=== PATIENT | female | born 1965 | race African-American/Black ===

== ENCOUNTER 2017-01-02 15:12 | Inpatient (IN) | payer OTHER ==
[2017-01-02 19:16] VITALS: BMI 31.3
--- NOTE | 2017-01-02 20:01 | HP ---
Admission ROS [facility] - [facility] Chief Complaint: I WANT TO GO TO REHAB Allergies/Adverse Reactions: Allergies Allergy/AdvReac Type Severity Reaction Status Date / Time No Known Allergies Allergy Verified 01/02/17 19:47 History of Present Illness: 51 YEARS OLD FEMALE WITH LONG HISTORY OF PCP DEPENDENCE HAS HIV AND POSITIVE PPD AND ALLERGIC RHINITIS DENIES MENTAL ILLNESS IS ADMITTED TO REHAB Exam Limitations: No Limitations - Ebola screening Have you traveled outside of the country in the last 21 days: No Have you had contact with anyone from an Ebola affected area: No Have you been sick,other than usual withdrawal symptoms: No Do you have a fever: No - Review of Systems Constitutional: No Symptoms Reported EENT: reports: No Symptoms Reported Respiratory: reports: No Symptoms reported Cardiac: reports: No Symptoms Reported GI: reports: No Symptoms Reported : reports: No Symptoms Reported Musculoskeletal: reports: No Symptoms Reported Integumentary: reports: No Symptoms Reported Neuro: reports: No Symptoms reported Endocrine: reports: No Symptoms Reported Hematology: reports: No Symptoms Reported Psychiatric: reports: Judgement Intact, Mood/Affect Appropiate, Orientated x3 Other Systems: Reviewed and Negative Patient History - Patient Medical History Hx Anemia: No Hx Asthma: No Hx Chronic Obstructive Pulmonary Disease (COPD): No Hx Cancer: No Hx Cardiac Disorders: No Hx Congestive Heart Failure: No Hx Hypertension: No Hx Hypercholesterolemia: No Hx Pacemaker: No HX Cerebrovascular Accident: No Hx Seizures: No Hx Dementia: No Hx Diabetes: No Hx Gastrointestinal Disorders: No Hx Liver Disease: No Hx Genitourinary Disorders: No Hx Sexually Transmitted Disorders: No Hx Renal Disease (ESRD): No Hx Thyroid Disease: No Hx Human Immunodeficiency Virus (HIV): No Hx Hepatitis C: No Hx Depression: No Hx Suicide Attempt: No Hx Bipolar Disorder: No Hx Schizophrenia: No - Patient Surgical History Past Surgical History: No - PPD History Previous Implant?: Yes Documented Results: Positive w/o proof Implanted On Prior [facility] Admission?: No PPD to be Administered?: No - Reproductive History Patient is a Female of Child Bearing Age (11 -55 yrs old): Yes Last Menstrual Period: 01/02/17 Patient : No - Smoking Cessation Smoking history: Never smoked Have you smoked in the past 12 months: No Cigars Per Day: 0 Hx Chewing Tobacco Use: No Initiated information on smoking cessation: No - Substance & Tx. History Hx Alcohol Use: No Hx Substance Use: Yes Substance Use Type: Cocaine Hx Substance Use Treatment: Yes - Substances Abused PCP Route: Smoking Frequency: Daily Amount used: 1 JOINT Age of first use: 14 Date of Last Use: 01/01/17 Family Disease History - Family Disease History Family Disease History: Heart Disease: Grandparent, Brother ( 51 YEARS OLD), Other: Father () Admission Physical Exam [facility] - Vital Signs Vital Signs: Vital Signs - 24 hr 01/02/17 19:12 Temperature 98.3 F Pulse Rate 88 Respiratory 20 Rate Blood Pressure 156/116 - Physical General Appearance: Yes: No Apparent Distress, Appropriately Dressed, Obese HEENTM: Yes: Hearing grossly Normal, Normal ENT Inspection, Normocephalic, Normal Voice Respiratory: Yes: Chest Non-Tender, Lungs Clear, Normal Breath Sounds, No Respiratory Distress, No Accessory Muscle Use Neck: Yes: Supple, Trachea in good position Breast: Yes: Breasts Symetrical Cardiology: Yes: Regular Rhythm, S1, S2 Abdominal: Yes: Non Tender, Soft Genitourinary: Yes: Within Normal Limits Back: Yes: Normal Inspection Musculoskeletal: Yes: full range of Motion, Gait Steady Extremities: Yes: Normal Inspection, Normal Range of Motion, Non-Tender Neurological: Yes: Fully Oriented, Motor Strength 5/5, Normal Mood/Affect, Normal Response Integumentary: Yes: Warm Lymphatic: Yes: Within Normal Limits - Diagnostic (1) PCP dependence Current Visit: Yes Status: Acute (2) HIV (human immunodeficiency virus infection) Current Visit: Yes Status: Acute Comment: PREZESTA NORVIR TRUVADA (3) Positive PPD, treated Current Visit: Yes Status: Resolved Comment: CHEST X RAY PENDING (4) Rhinitis, allergic Current Visit: Yes Status: Acute Qualifiers: Allergic rhinitis trigger: unspecified Allergic rhinitis seasonality: non-seasonal Qualified Code(s): J30.89 - Other allergic rhinitis Cleared for Admission [facility] - Detox or Rehab [facility] Level of Care: Observation Bed Detox Regimen/Protocol: Not Applicable Claeared for Rehab Admission: Yes [facility] Breath Alcohol Content Breath Alcohol Content: 0 Urine Drug Screen - Results Drug Screen Negative: No Urine Drug Screen Results: PCP-Phencyclidine
[2017-01-02] MEDS ORDERED: MAGNESIUM CITRATE 300 ML BOTTLE PO PRN (20:03)
[2017-01-02] MEDS ORDERED: hydrOXYzine PAMOATE 50 MG CAPSULE (FP) PO PRN (20:03)
[2017-01-02] MEDS ORDERED: ACETAMINOPHEN 325 MG TABLET (FP) PO PRN (20:03)
[2017-01-02] MEDS ORDERED: MAGNESIUM HYDROX 2400MG/30ML ORAL SUSPENSION 30 ML CUP PO PRN (20:03)
[2017-01-02] MEDS ORDERED: LOPERAMIDE HCL 2 MG CAPSULE PO PRN (20:03)
[2017-01-02] MEDS ORDERED: IBUPROFEN 400 MG TABLET (FP) PO PRN (20:03)
[2017-01-02] MEDS ORDERED: guaiFENesin/D-METHORPHAN HB 10 ML UNIT-DOSE CUPS PO PRN (20:03)
[2017-01-02] MEDS ORDERED: P-EPHED 60MG/TRIPROLIDI 2.5MG TABLET PO PRN (20:03)
[2017-01-02] MEDS ORDERED: MENTHOL/PHENOL 1 EACH UD MM PRN (20:03)
[2017-01-02] MEDS: THIAMINE HCL 100 MG TABLET (FP) PO SCH (22:24)
[2017-01-03] MEDS ORDERED: hydrOXYzine PAMOATE 50 MG CAPSULE (FP) PO PRN (00:35)
[2017-01-03] MEDS: MAG HYDROX/AL HYDROX/SIMETH 30 ML UNIT-DOSE CUP PO PRN (08:42)
[2017-01-03] MEDS ORDERED: PT OWN MED DRAWER 7, Y5N ONE (09:40)
[2017-01-03 10:00] LABS: MCH 30.7 pg (25.7-33.7); MCHC 34.1 g/dl (32.0-36.0); MEAN CELL VOLUME 90.2 fl (80-96); MEAN PLT VOLUME 10.3 fl (7.5-11.1); PLATELET COUNT 204 K/MM3 (134-434); RDW 15.7 % (11.6-15.6); WHITE BLOOD COUNT 7.4 K/mm3 (4.0-10.0)
[2017-01-03] MEDS: LORATADINE 10 MG TABLET PO SCH (10:15)
[2017-01-03] MEDS: PRENATAL VITAMINS W/ FOLIC ACID TABLET (FP) PO SCH (10:15)
[2017-01-03] MEDS: DARUNAVIR ETHANOLATE 800 MG PO SCH (10:16)
[2017-01-03] MEDS: PATIENT'S OWN MEDICATION (NON-FORMULARY) (Ritonavir [Norvir -] 100 MG) PO SCH (10:16)
[2017-01-03] MEDS: PATIENT'S OWN MEDICATION (NON-FORMULARY) (Emtricitabine/Tenofovir (Tdf) [Truvada 200 Mg-30 PO SCH (10:16)
[2017-01-03] MEDS: FLUCONAZOLE 50 MG TABLET PO SCH (10:17)
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
[2017-01-03 10:48] LABS: ALBUMIN 3.3 g/dl (3.4-5.0); ALK PHOS 64 U/L (45-117); ANION GAP 8 (8-16); BILIRUBIN,TOTAL 0.2 mg/dL (0.2-1.0); CALCIUM 8.5 mg/dL (8.5-10.1); CO2 29 mmol/L (21-32); CREATININE 0.9 mg/dL (0.55-1.02); GLUCOSE,RANDOM 85 mg/dL (74-106); SGOT/AST 14 U/L (15-37); SGPT/ALT 17 U/L (12-78); TOT PROT 7.2 g/dl (6.4-8.2)
--- NOTE | 2017-01-03 11:25 | EKG ---
Test Reason : Blood Pressure : / mmHG Vent. Rate : 074 BPM Atrial Rate : 074 BPM P-R Int : 194 ms QRS Dur : 084 ms QT Int : 406 ms P-R-T Axes : 045 048 043 degrees QTc Int : 450 ms NORMAL SINUS RHYTHM NORMAL ECG NO PREVIOUS ECGS AVAILABLE Confirmed by JOSE ALFREDO CORONA, SERGEY ([id number]) on 01/03/2017 11:25:18 AM Referred By: Mel Mancia Confirmed By:SERGEY VELIZ MD
--- NOTE | 2017-01-03 14:39 | PN ---
[facility] Progress Note Note: C/O external hemorrhoids P : HC 2.5% bid
[2017-01-03 15:23] LABS: URINE APPEARANCE CLEAR; URINE BILIRUBIN NEGATIVE (NEGATIVE); URINE BLOOD NEGATIVE (NEGATIVE); URINE COLOR YELLOW; URINE GLUCOSE (UA) NEGATIVE (NEGATIVE); URINE KETONE NEGATIVE (NEGATIVE); URINE LEUK ESTERASE NEGATIVE (NEGATIVE); URINE NITRITE NEGATIVE (NEGATIVE); URINE PROTEIN NEGATIVE (NEGATIVE); URINE UROBILINOGEN NEGATIVE E.U./dl (0.2-1.0)
[2017-01-03] MEDS: traZODone HCL 50 MG TABLET (FP) PO SCH (21:35)
[2017-01-03] MEDS: THIAMINE HCL 100 MG TABLET (FP) PO SCH (21:35)
[2017-01-03] MEDS: HYDROCORTISONE 2.5% TOPICAL CREAM 30 GM TUBE TP SCH (21:35)
[2017-01-04] MEDS: PATIENT'S OWN MEDICATION (NON-FORMULARY) (Emtricitabine/Tenofovir (Tdf) [Truvada 200 Mg-30 PO SCH (07:19)
[2017-01-04] MEDS: PATIENT'S OWN MEDICATION (NON-FORMULARY) (Ritonavir [Norvir -] 100 MG) PO SCH (07:19)
[2017-01-04] MEDS: DARUNAVIR ETHANOLATE 800 MG PO SCH (07:20)
[2017-01-04] MEDS ORDERED: PT OWN MED DRAWER 7, Y5N ONE ×3 (07:24→10:11)
[2017-01-04] MEDS: HYDROCORTISONE 2.5% TOPICAL CREAM 30 GM TUBE TP SCH ×2 (10:09→21:36)
[2017-01-04] MEDS: LORATADINE 10 MG TABLET PO SCH (10:09)
[2017-01-04] MEDS: PRENATAL VITAMINS W/ FOLIC ACID TABLET (FP) PO SCH (10:10)
[2017-01-04] MEDS: FLUCONAZOLE 50 MG TABLET PO SCH (10:10)
[2017-01-04] MEDS: THIAMINE HCL 100 MG TABLET (FP) PO SCH (21:36)
[2017-01-04] MEDS: traZODone HCL 50 MG TABLET (FP) PO SCH (21:36)
[2017-01-05] MEDS: DARUNAVIR ETHANOLATE 800 MG PO SCH (08:01)
[2017-01-05] MEDS: PATIENT'S OWN MEDICATION (NON-FORMULARY) (Emtricitabine/Tenofovir (Tdf) [Truvada 200 Mg-30 PO SCH (08:01)
[2017-01-05] MEDS: PATIENT'S OWN MEDICATION (NON-FORMULARY) (Ritonavir [Norvir -] 100 MG) PO SCH (08:01)
[2017-01-05] MEDS: HYDROCORTISONE 2.5% TOPICAL CREAM 30 GM TUBE TP SCH ×2 (10:24→21:38)
[2017-01-05] MEDS: FLUCONAZOLE 100 MG TABLET (UD) PO SCH (10:24)
[2017-01-05] MEDS: PRENATAL VITAMINS W/ FOLIC ACID TABLET (FP) PO SCH (10:24)
[2017-01-05] MEDS: LORATADINE 10 MG TABLET PO SCH (10:24)
[2017-01-05] MEDS ORDERED: PT OWN MED DRAWER 7, Y5N ONE (19:34)
[2017-01-05] MEDS: MAG HYDROX/AL HYDROX/SIMETH 30 ML UNIT-DOSE CUP PO PRN (20:02)
[2017-01-05] MEDS: THIAMINE HCL 100 MG TABLET (FP) PO SCH (21:37)
[2017-01-05] MEDS: traZODone HCL 50 MG TABLET (FP) PO SCH (21:37)
[2017-01-05] MEDS: diphenhydrAMINE HCL 50 MG CAPSULE PO PRN (21:37)
[2017-01-06] MEDS: diphenhydrAMINE HCL 50 MG CAPSULE PO PRN (00:32)
[2017-01-06] MEDS ORDERED: PT OWN MED DRAWER 7, Y5N ONE ×2 (05:50→07:58)
[2017-01-06] MEDS: DARUNAVIR ETHANOLATE 800 MG PO SCH (07:56)
[2017-01-06] MEDS: PATIENT'S OWN MEDICATION (NON-FORMULARY) (Emtricitabine/Tenofovir (Tdf) [Truvada 200 Mg-30 PO SCH (07:56)
[2017-01-06] MEDS: PATIENT'S OWN MEDICATION (NON-FORMULARY) (Ritonavir [Norvir -] 100 MG) PO SCH (07:56)
[2017-01-06] MEDS: FLUCONAZOLE 100 MG TABLET (UD) PO SCH (10:16)
[2017-01-06] MEDS: PRENATAL VITAMINS W/ FOLIC ACID TABLET (FP) PO SCH (10:16)
[2017-01-06] MEDS: HYDROCORTISONE 2.5% TOPICAL CREAM 30 GM TUBE TP SCH ×2 (10:16→21:31)
[2017-01-06] MEDS: LORATADINE 10 MG TABLET PO SCH (10:16)
[2017-01-06] MEDS: traZODone HCL 50 MG TABLET (FP) PO SCH (21:31)
[2017-01-06] MEDS: THIAMINE HCL 100 MG TABLET (FP) PO SCH (21:31)
[2017-01-07] MEDS ORDERED: PT OWN MED DRAWER 7, Y5N ONE (06:02)
[2017-01-07] MEDS: PATIENT'S OWN MEDICATION (NON-FORMULARY) (Ritonavir [Norvir -] 100 MG) PO SCH (08:08)
[2017-01-07] MEDS: PATIENT'S OWN MEDICATION (NON-FORMULARY) (Emtricitabine/Tenofovir (Tdf) [Truvada 200 Mg-30 PO SCH (08:08)
[2017-01-07] MEDS: DARUNAVIR ETHANOLATE 800 MG PO SCH (08:08)
[2017-01-07] MEDS: PRENATAL VITAMINS W/ FOLIC ACID TABLET (FP) PO SCH (09:49)
[2017-01-07] MEDS: HYDROCORTISONE 2.5% TOPICAL CREAM 30 GM TUBE TP SCH ×2 (09:49→21:33)
[2017-01-07] MEDS: FLUCONAZOLE 100 MG TABLET (UD) PO SCH (09:49)
[2017-01-07] MEDS: LORATADINE 10 MG TABLET PO SCH (09:50)
[2017-01-07] MEDS: traZODone HCL 50 MG TABLET (FP) PO SCH (21:32)
[2017-01-07] MEDS: THIAMINE HCL 100 MG TABLET (FP) PO SCH (21:33)
[2017-01-07] MEDS: diphenhydrAMINE HCL 50 MG CAPSULE PO PRN (23:37)
[2017-01-08] MEDS: DARUNAVIR ETHANOLATE 800 MG PO SCH (07:59)
[2017-01-08] MEDS: PATIENT'S OWN MEDICATION (NON-FORMULARY) (Emtricitabine/Tenofovir (Tdf) [Truvada 200 Mg-30 PO SCH (08:00)
[2017-01-08] MEDS: PATIENT'S OWN MEDICATION (NON-FORMULARY) (Ritonavir [Norvir -] 100 MG) PO SCH (08:00)
[2017-01-08] MEDS: FLUCONAZOLE 100 MG TABLET (UD) PO SCH (10:18)
[2017-01-08] MEDS: PRENATAL VITAMINS W/ FOLIC ACID TABLET (FP) PO SCH (10:18)
[2017-01-08] MEDS: MAG HYDROX/AL HYDROX/SIMETH 30 ML UNIT-DOSE CUP PO PRN (10:19)
[2017-01-08] MEDS: LORATADINE 10 MG TABLET PO SCH (10:19)
[2017-01-08] MEDS: HYDROCORTISONE 2.5% TOPICAL CREAM 30 GM TUBE TP SCH ×2 (10:21→21:49)
[2017-01-08] MEDS: traZODone HCL 50 MG TABLET (FP) PO SCH (21:49)
[2017-01-08] MEDS: THIAMINE HCL 100 MG TABLET (FP) PO SCH (21:49)
[2017-01-08] MEDS: diphenhydrAMINE HCL 50 MG CAPSULE PO PRN (21:49)
[2017-01-09] MEDS ORDERED: PT OWN MED DRAWER 7, Y5N ONE ×2 (05:12→20:09)
[2017-01-09] MEDS: DARUNAVIR ETHANOLATE 800 MG PO SCH (07:37)
[2017-01-09] MEDS: PATIENT'S OWN MEDICATION (NON-FORMULARY) (Emtricitabine/Tenofovir (Tdf) [Truvada 200 Mg-30 PO SCH (07:37)
[2017-01-09] MEDS: PATIENT'S OWN MEDICATION (NON-FORMULARY) (Ritonavir [Norvir -] 100 MG) PO SCH (07:37)
[2017-01-09] MEDS: HYDROCORTISONE 2.5% TOPICAL CREAM 30 GM TUBE TP SCH ×2 (10:31→21:45)
[2017-01-09] MEDS: PRENATAL VITAMINS W/ FOLIC ACID TABLET (FP) PO SCH (10:31)
[2017-01-09] MEDS: FLUCONAZOLE 100 MG TABLET (UD) PO SCH (10:31)
[2017-01-09] MEDS: LORATADINE 10 MG TABLET PO SCH (10:31)
[2017-01-09] MEDS: THIAMINE HCL 100 MG TABLET (FP) PO SCH (21:44)
[2017-01-09] MEDS: traZODone HCL 50 MG TABLET (FP) PO SCH (21:44)
[2017-01-09] MEDS: diphenhydrAMINE HCL 50 MG CAPSULE PO PRN (21:45)
[2017-01-10] MEDS: PATIENT'S OWN MEDICATION (NON-FORMULARY) (Emtricitabine/Tenofovir (Tdf) [Truvada 200 Mg-30 PO SCH (08:30)
[2017-01-10] MEDS: PATIENT'S OWN MEDICATION (NON-FORMULARY) (Ritonavir [Norvir -] 100 MG) PO SCH (08:30)
[2017-01-10] MEDS: DARUNAVIR ETHANOLATE 800 MG PO SCH (08:30)
[2017-01-10] MEDS ORDERED: PT OWN MED DRAWER 7, Y5N ONE (09:04)
[2017-01-10] MEDS: HYDROCORTISONE 2.5% TOPICAL CREAM 30 GM TUBE TP SCH ×2 (10:34→22:00)
[2017-01-10] MEDS: PRENATAL VITAMINS W/ FOLIC ACID TABLET (FP) PO SCH (10:35)
[2017-01-10] MEDS: LORATADINE 10 MG TABLET PO SCH (10:35)
[2017-01-10] MEDS: FLUCONAZOLE 100 MG TABLET (UD) PO SCH (10:35)
[2017-01-10] MEDS: traZODone HCL 100 MG TABLET (FP) PO SCH (22:01)
[2017-01-10] MEDS: diphenhydrAMINE HCL 50 MG CAPSULE PO PRN (22:01)
[2017-01-10] MEDS: THIAMINE HCL 100 MG TABLET (FP) PO SCH (22:01)
[2017-01-11] MEDS: PATIENT'S OWN MEDICATION (NON-FORMULARY) (Emtricitabine/Tenofovir (Tdf) [Truvada 200 Mg-30 PO SCH (07:59)
[2017-01-11] MEDS: PATIENT'S OWN MEDICATION (NON-FORMULARY) (Ritonavir [Norvir -] 100 MG) PO SCH (08:00)
[2017-01-11] MEDS: DARUNAVIR ETHANOLATE 800 MG PO SCH (08:00)
[2017-01-11] MEDS ORDERED: PT OWN MED DRAWER 7, Y5N ONE ×2 (08:01→09:04)
[2017-01-11] MEDS: PRENATAL VITAMINS W/ FOLIC ACID TABLET (FP) PO SCH (10:48)
[2017-01-11] MEDS: LORATADINE 10 MG TABLET PO SCH (10:48)
[2017-01-11] MEDS: FLUCONAZOLE 100 MG TABLET (UD) PO SCH (10:48)
[2017-01-11] MEDS: HYDROCORTISONE 2.5% TOPICAL CREAM 30 GM TUBE TP SCH ×2 (10:49→21:55)
[2017-01-11] MEDS: THIAMINE HCL 100 MG TABLET (FP) PO SCH (21:54)
[2017-01-11] MEDS: diphenhydrAMINE HCL 50 MG CAPSULE PO PRN (21:54)
[2017-01-11] MEDS: traZODone HCL 100 MG TABLET (FP) PO SCH (21:54)
[2017-01-12] MEDS ORDERED: PT OWN MED DRAWER 7, Y5N ONE ×3 (06:02→08:56)
[2017-01-12] MEDS: PATIENT'S OWN MEDICATION (NON-FORMULARY) (Emtricitabine/Tenofovir (Tdf) [Truvada 200 Mg-30 PO SCH (07:57)
[2017-01-12] MEDS: PATIENT'S OWN MEDICATION (NON-FORMULARY) (Ritonavir [Norvir -] 100 MG) PO SCH (07:57)
[2017-01-12] MEDS: DARUNAVIR ETHANOLATE 800 MG PO SCH (07:57)
[2017-01-12] MEDS: FLUCONAZOLE 100 MG TABLET (UD) PO SCH (10:44)
[2017-01-12] MEDS: LORATADINE 10 MG TABLET PO SCH (10:44)
[2017-01-12] MEDS: PRENATAL VITAMINS W/ FOLIC ACID TABLET (FP) PO SCH (10:44)
[2017-01-12] MEDS: HYDROCORTISONE 2.5% TOPICAL CREAM 30 GM TUBE TP SCH ×2 (10:45→21:52)
[2017-01-12] MEDS: diphenhydrAMINE HCL 50 MG CAPSULE PO PRN (21:50)
[2017-01-12] MEDS: traZODone HCL 100 MG TABLET (FP) PO SCH (21:50)
[2017-01-12] MEDS: THIAMINE HCL 100 MG TABLET (FP) PO SCH (21:51)
[2017-01-13] MEDS: PATIENT'S OWN MEDICATION (NON-FORMULARY) (Ritonavir [Norvir -] 100 MG) PO SCH (08:08)
[2017-01-13] MEDS: PATIENT'S OWN MEDICATION (NON-FORMULARY) (Emtricitabine/Tenofovir (Tdf) [Truvada 200 Mg-30 PO SCH (08:08)
[2017-01-13] MEDS: DARUNAVIR ETHANOLATE 800 MG PO SCH (08:08)
[2017-01-13] MEDS: HYDROCORTISONE 2.5% TOPICAL CREAM 30 GM TUBE TP SCH ×2 (10:32→21:40)
[2017-01-13] MEDS: LORATADINE 10 MG TABLET PO SCH (10:33)
[2017-01-13] MEDS: PRENATAL VITAMINS W/ FOLIC ACID TABLET (FP) PO SCH (10:33)
[2017-01-13] MEDS: FLUCONAZOLE 100 MG TABLET (UD) PO SCH (10:33)
[2017-01-13] MEDS ORDERED: PT OWN MED DRAWER 7, Y5N ONE (20:14)
[2017-01-13] MEDS: traZODone HCL 100 MG TABLET (FP) PO SCH (21:41)
[2017-01-13] MEDS: diphenhydrAMINE HCL 50 MG CAPSULE PO PRN (21:41)
[2017-01-13] MEDS: THIAMINE HCL 100 MG TABLET (FP) PO SCH (21:41)
[2017-01-14] MEDS: DARUNAVIR ETHANOLATE 800 MG PO SCH (07:59)
[2017-01-14] MEDS: PATIENT'S OWN MEDICATION (NON-FORMULARY) (Ritonavir [Norvir -] 100 MG) PO SCH (08:00)
[2017-01-14] MEDS: PATIENT'S OWN MEDICATION (NON-FORMULARY) (Emtricitabine/Tenofovir (Tdf) [Truvada 200 Mg-30 PO SCH (08:00)
[2017-01-14] MEDS ORDERED: PT OWN MED DRAWER 7, Y5N ONE ×2 (08:26→19:42)
[2017-01-14] MEDS: HYDROCORTISONE 2.5% TOPICAL CREAM 30 GM TUBE TP SCH ×2 (10:19→21:41)
[2017-01-14] MEDS: PRENATAL VITAMINS W/ FOLIC ACID TABLET (FP) PO SCH (10:19)
[2017-01-14] MEDS: LORATADINE 10 MG TABLET PO SCH (10:19)
[2017-01-14] MEDS: FLUCONAZOLE 100 MG TABLET (UD) PO SCH (10:19)
[2017-01-14] MEDS: THIAMINE HCL 100 MG TABLET (FP) PO SCH (21:40)
[2017-01-14] MEDS: traZODone HCL 100 MG TABLET (FP) PO SCH (21:40)
[2017-01-14] MEDS: diphenhydrAMINE HCL 50 MG CAPSULE PO PRN (21:41)
[2017-01-15] MEDS: PATIENT'S OWN MEDICATION (NON-FORMULARY) (Emtricitabine/Tenofovir (Tdf) [Truvada 200 Mg-30 PO SCH (08:03)
[2017-01-15] MEDS: PATIENT'S OWN MEDICATION (NON-FORMULARY) (Ritonavir [Norvir -] 100 MG) PO SCH (08:03)
[2017-01-15] MEDS: DARUNAVIR ETHANOLATE 800 MG PO SCH (08:03)
[2017-01-15] MEDS ORDERED: PT OWN MED DRAWER 7, Y5N ONE ×3 (08:06→20:22)
[2017-01-15] MEDS: HYDROCORTISONE 2.5% TOPICAL CREAM 30 GM TUBE TP SCH ×2 (10:31→21:36)
[2017-01-15] MEDS: FLUCONAZOLE 100 MG TABLET (UD) PO SCH (10:31)
[2017-01-15] MEDS: LORATADINE 10 MG TABLET PO SCH (10:31)
[2017-01-15] MEDS: PRENATAL VITAMINS W/ FOLIC ACID TABLET (FP) PO SCH (10:31)
[2017-01-15] MEDS: THIAMINE HCL 100 MG TABLET (FP) PO SCH (21:35)
[2017-01-15] MEDS: traZODone HCL 100 MG TABLET (FP) PO SCH (21:35)
[2017-01-15] MEDS: diphenhydrAMINE HCL 50 MG CAPSULE PO PRN (21:36)
[2017-01-16] MEDS ORDERED: PT OWN MED DRAWER 7, Y5N ONE ×2 (05:57→07:58)
[2017-01-16] MEDS: PATIENT'S OWN MEDICATION (NON-FORMULARY) (Ritonavir [Norvir -] 100 MG) PO SCH (07:56)
[2017-01-16] MEDS: PATIENT'S OWN MEDICATION (NON-FORMULARY) (Emtricitabine/Tenofovir (Tdf) [Truvada 200 Mg-30 PO SCH (07:56)
[2017-01-16] MEDS: DARUNAVIR ETHANOLATE 800 MG PO SCH (07:56)
[2017-01-16] MEDS: PRENATAL VITAMINS W/ FOLIC ACID TABLET (FP) PO SCH (10:25)
[2017-01-16] MEDS: FLUCONAZOLE 100 MG TABLET (UD) PO SCH (10:25)
[2017-01-16] MEDS: LORATADINE 10 MG TABLET PO SCH (10:25)
[2017-01-16] MEDS: HYDROCORTISONE 2.5% TOPICAL CREAM 30 GM TUBE TP SCH ×2 (10:26→21:39)
[2017-01-16] MEDS: traZODone HCL 100 MG TABLET (FP) PO SCH (21:38)
[2017-01-16] MEDS: THIAMINE HCL 100 MG TABLET (FP) PO SCH (21:38)
[2017-01-16] MEDS: diphenhydrAMINE HCL 50 MG CAPSULE PO PRN (21:39)
[2017-01-17] MEDS: PATIENT'S OWN MEDICATION (NON-FORMULARY) (Emtricitabine/Tenofovir (Tdf) [Truvada 200 Mg-30 PO SCH (07:56)
[2017-01-17] MEDS: PATIENT'S OWN MEDICATION (NON-FORMULARY) (Ritonavir [Norvir -] 100 MG) PO SCH (07:57)
[2017-01-17] MEDS: DARUNAVIR ETHANOLATE 800 MG PO SCH (07:57)
[2017-01-17] MEDS ORDERED: PT OWN MED DRAWER 7, Y5N ONE (08:59)
[2017-01-17] MEDS: HYDROCORTISONE 2.5% TOPICAL CREAM 30 GM TUBE TP SCH ×2 (10:33→23:07)
[2017-01-17] MEDS: FLUCONAZOLE 100 MG TABLET (UD) PO SCH (10:34)
[2017-01-17] MEDS: PRENATAL VITAMINS W/ FOLIC ACID TABLET (FP) PO SCH (10:34)
[2017-01-17] MEDS: LORATADINE 10 MG TABLET PO SCH (10:34)
[2017-01-17] MEDS: traZODone HCL 100 MG TABLET (FP) PO SCH (22:43)
[2017-01-17] MEDS: THIAMINE HCL 100 MG TABLET (FP) PO SCH (22:43)
[2017-01-17] MEDS: diphenhydrAMINE HCL 50 MG CAPSULE PO PRN (22:44)
[2017-01-18] MEDS: DARUNAVIR ETHANOLATE 800 MG PO SCH (07:55)
[2017-01-18] MEDS: PATIENT'S OWN MEDICATION (NON-FORMULARY) (Emtricitabine/Tenofovir (Tdf) [Truvada 200 Mg-30 PO SCH (07:56)
[2017-01-18] MEDS: PATIENT'S OWN MEDICATION (NON-FORMULARY) (Ritonavir [Norvir -] 100 MG) PO SCH (07:56)
[2017-01-18] MEDS ORDERED: PT OWN MED DRAWER 7, Y5N ONE (08:45)
[2017-01-18] MEDS: FLUCONAZOLE 100 MG TABLET (UD) PO SCH (10:47)
[2017-01-18] MEDS: PRENATAL VITAMINS W/ FOLIC ACID TABLET (FP) PO SCH (10:47)
[2017-01-18] MEDS: LORATADINE 10 MG TABLET PO SCH (10:47)
[2017-01-18] MEDS: HYDROCORTISONE 2.5% TOPICAL CREAM 30 GM TUBE TP SCH ×2 (10:47→22:23)
[2017-01-18] MEDS: traZODone HCL 100 MG TABLET (FP) PO SCH (22:24)
[2017-01-18] MEDS: THIAMINE HCL 100 MG TABLET (FP) PO SCH (22:24)
[2017-01-19] MEDS: DARUNAVIR ETHANOLATE 800 MG PO SCH (07:48)
[2017-01-19] MEDS: PATIENT'S OWN MEDICATION (NON-FORMULARY) (Ritonavir [Norvir -] 100 MG) PO SCH (07:48)
[2017-01-19] MEDS: PATIENT'S OWN MEDICATION (NON-FORMULARY) (Emtricitabine/Tenofovir (Tdf) [Truvada 200 Mg-30 PO SCH (07:48)
[2017-01-19] MEDS ORDERED: PT OWN MED DRAWER 7, Y5N ONE ×3 (07:49→19:48)
[2017-01-19] MEDS: HYDROCORTISONE 2.5% TOPICAL CREAM 30 GM TUBE TP SCH ×2 (10:23→21:55)
[2017-01-19] MEDS: PRENATAL VITAMINS W/ FOLIC ACID TABLET (FP) PO SCH (10:24)
[2017-01-19] MEDS: FLUCONAZOLE 100 MG TABLET (UD) PO SCH (10:24)
[2017-01-19] MEDS: LORATADINE 10 MG TABLET PO SCH (10:24)
[2017-01-19] MEDS: THIAMINE HCL 100 MG TABLET (FP) PO SCH (21:55)
[2017-01-19] MEDS: traZODone HCL 100 MG TABLET (FP) PO SCH (21:55)
[2017-01-19] MEDS: diphenhydrAMINE HCL 50 MG CAPSULE PO PRN (21:55)
[2017-01-20] MEDS: DARUNAVIR ETHANOLATE 800 MG PO SCH (07:53)
[2017-01-20] MEDS: PATIENT'S OWN MEDICATION (NON-FORMULARY) (Ritonavir [Norvir -] 100 MG) PO SCH (07:53)
[2017-01-20] MEDS: PATIENT'S OWN MEDICATION (NON-FORMULARY) (Emtricitabine/Tenofovir (Tdf) [Truvada 200 Mg-30 PO SCH (07:53)
[2017-01-20] MEDS ORDERED: PT OWN MED DRAWER 7, Y5N ONE ×3 (07:55→21:53)
[2017-01-20] MEDS: PRENATAL VITAMINS W/ FOLIC ACID TABLET (FP) PO SCH (10:45)
[2017-01-20] MEDS: LORATADINE 10 MG TABLET PO SCH (10:45)
[2017-01-20] MEDS: FLUCONAZOLE 100 MG TABLET (UD) PO SCH (10:46)
[2017-01-20] MEDS: HYDROCORTISONE 2.5% TOPICAL CREAM 30 GM TUBE TP SCH ×2 (10:46→21:53)
[2017-01-20] MEDS: diphenhydrAMINE HCL 50 MG CAPSULE PO PRN (21:52)
[2017-01-20] MEDS: THIAMINE HCL 100 MG TABLET (FP) PO SCH (21:52)
[2017-01-20] MEDS: traZODone HCL 100 MG TABLET (FP) PO SCH (21:52)
[2017-01-21] MEDS ORDERED: PT OWN MED DRAWER 7, Y5N ONE ×3 (06:05→08:52)
[2017-01-21] MEDS: PATIENT'S OWN MEDICATION (NON-FORMULARY) (Ritonavir [Norvir -] 100 MG) PO SCH (08:01)
[2017-01-21] MEDS: PATIENT'S OWN MEDICATION (NON-FORMULARY) (Emtricitabine/Tenofovir (Tdf) [Truvada 200 Mg-30 PO SCH (08:01)
[2017-01-21] MEDS: DARUNAVIR ETHANOLATE 800 MG PO SCH (08:01)
[2017-01-21] MEDS: FLUCONAZOLE 100 MG TABLET (UD) PO SCH (10:43)
[2017-01-21] MEDS: LORATADINE 10 MG TABLET PO SCH (10:43)
[2017-01-21] MEDS: PRENATAL VITAMINS W/ FOLIC ACID TABLET (FP) PO SCH (10:43)
[2017-01-21] MEDS: HYDROCORTISONE 2.5% TOPICAL CREAM 30 GM TUBE TP SCH ×2 (10:43→21:51)
[2017-01-21] MEDS: traZODone HCL 100 MG TABLET (FP) PO SCH (21:50)
[2017-01-21] MEDS: diphenhydrAMINE HCL 50 MG CAPSULE PO PRN (21:50)
[2017-01-21] MEDS: THIAMINE HCL 100 MG TABLET (FP) PO SCH (21:50)
[2017-01-22] MEDS ORDERED: PT OWN MED DRAWER 7, Y5N ONE ×3 (05:49→09:00)
[2017-01-22] MEDS: PATIENT'S OWN MEDICATION (NON-FORMULARY) (Emtricitabine/Tenofovir (Tdf) [Truvada 200 Mg-30 PO SCH (07:17)
[2017-01-22] MEDS: DARUNAVIR ETHANOLATE 800 MG PO SCH (07:17)
[2017-01-22] MEDS: PATIENT'S OWN MEDICATION (NON-FORMULARY) (Ritonavir [Norvir -] 100 MG) PO SCH (07:17)
[2017-01-22] MEDS: LORATADINE 10 MG TABLET PO SCH (10:38)
[2017-01-22] MEDS: FLUCONAZOLE 100 MG TABLET (UD) PO SCH (10:38)
[2017-01-22] MEDS: HYDROCORTISONE 2.5% TOPICAL CREAM 30 GM TUBE TP SCH ×2 (10:38→21:46)
[2017-01-22] MEDS: PRENATAL VITAMINS W/ FOLIC ACID TABLET (FP) PO SCH (10:38)
[2017-01-22] MEDS: traZODone HCL 100 MG TABLET (FP) PO SCH (21:45)
[2017-01-22] MEDS: diphenhydrAMINE HCL 50 MG CAPSULE PO PRN (21:45)
[2017-01-22] MEDS: THIAMINE HCL 100 MG TABLET (FP) PO SCH (21:45)
[2017-01-23] MEDS: PATIENT'S OWN MEDICATION (NON-FORMULARY) (Emtricitabine/Tenofovir (Tdf) [Truvada 200 Mg-30 PO SCH (07:37)
[2017-01-23] MEDS: DARUNAVIR ETHANOLATE 800 MG PO SCH (07:37)
[2017-01-23] MEDS: PATIENT'S OWN MEDICATION (NON-FORMULARY) (Ritonavir [Norvir -] 100 MG) PO SCH (07:37)
[2017-01-23] MEDS ORDERED: PT OWN MED DRAWER 7, Y5N ONE (08:32)
[2017-01-23] MEDS: HYDROCORTISONE 2.5% TOPICAL CREAM 30 GM TUBE TP SCH ×2 (10:35→21:49)
[2017-01-23] MEDS: LORATADINE 10 MG TABLET PO SCH (10:36)
[2017-01-23] MEDS: FLUCONAZOLE 100 MG TABLET (UD) PO SCH (10:36)
[2017-01-23] MEDS: PRENATAL VITAMINS W/ FOLIC ACID TABLET (FP) PO SCH (10:36)
[2017-01-23] MEDS: THIAMINE HCL 100 MG TABLET (FP) PO SCH (21:49)
[2017-01-23] MEDS: BACITRACIN 0.9 GM PACKET TP SCH (21:49)
[2017-01-23] MEDS: traZODone HCL 100 MG TABLET (FP) PO SCH (21:51)
[2017-01-23] MEDS: diphenhydrAMINE HCL 50 MG CAPSULE PO PRN (21:51)
[2017-01-24] MEDS ORDERED: PT OWN MED DRAWER 7, Y5N ONE (03:14)
[2017-01-24] MEDS: PATIENT'S OWN MEDICATION (NON-FORMULARY) (Ritonavir [Norvir -] 100 MG) PO SCH (07:52)
[2017-01-24] MEDS: DARUNAVIR ETHANOLATE 800 MG PO SCH (07:52)
[2017-01-24] MEDS: PATIENT'S OWN MEDICATION (NON-FORMULARY) (Emtricitabine/Tenofovir (Tdf) [Truvada 200 Mg-30 PO SCH (07:53)
[2017-01-24] MEDS: BACITRACIN 0.9 GM PACKET TP SCH ×2 (10:56→21:51)
[2017-01-24] MEDS: PRENATAL VITAMINS W/ FOLIC ACID TABLET (FP) PO SCH (10:56)
[2017-01-24] MEDS: LORATADINE 10 MG TABLET PO SCH (10:56)
[2017-01-24] MEDS: FLUCONAZOLE 100 MG TABLET (UD) PO SCH (10:56)
[2017-01-24] MEDS: HYDROCORTISONE 2.5% TOPICAL CREAM 30 GM TUBE TP SCH ×2 (10:59→21:53)
[2017-01-24] MEDS: THIAMINE HCL 100 MG TABLET (FP) PO SCH (21:52)
[2017-01-24] MEDS: traZODone HCL 100 MG TABLET (FP) PO SCH (21:52)
[2017-01-24] MEDS: diphenhydrAMINE HCL 50 MG CAPSULE PO PRN (21:52)
[2017-01-25] MEDS: DARUNAVIR ETHANOLATE 800 MG PO SCH (08:03)
[2017-01-25] MEDS: PATIENT'S OWN MEDICATION (NON-FORMULARY) (Emtricitabine/Tenofovir (Tdf) [Truvada 200 Mg-30 PO SCH (08:04)
[2017-01-25] MEDS: PATIENT'S OWN MEDICATION (NON-FORMULARY) (Ritonavir [Norvir -] 100 MG) PO SCH (08:04)
[2017-01-25] MEDS ORDERED: PT OWN MED DRAWER 7, Y5N ONE (08:56)
[2017-01-25] MEDS: FLUCONAZOLE 100 MG TABLET (UD) PO SCH (10:48)
[2017-01-25] MEDS: HYDROCORTISONE 2.5% TOPICAL CREAM 30 GM TUBE TP SCH ×2 (10:48→21:37)
[2017-01-25] MEDS: PRENATAL VITAMINS W/ FOLIC ACID TABLET (FP) PO SCH (10:48)
[2017-01-25] MEDS: LORATADINE 10 MG TABLET PO SCH (10:48)
[2017-01-25] MEDS: BACITRACIN 0.9 GM PACKET TP SCH ×2 (10:48→21:36)
[2017-01-25] MEDS: THIAMINE HCL 100 MG TABLET (FP) PO SCH (21:36)
[2017-01-25] MEDS: diphenhydrAMINE HCL 50 MG CAPSULE PO PRN (21:37)
[2017-01-25] MEDS: traZODone HCL 100 MG TABLET (FP) PO SCH (21:37)
[2017-01-26] MEDS ORDERED: PT OWN MED DRAWER 7, Y5N ONE ×3 (05:57→08:44)
[2017-01-26] MEDS: DARUNAVIR ETHANOLATE 800 MG PO SCH (07:47)
[2017-01-26] MEDS: PATIENT'S OWN MEDICATION (NON-FORMULARY) (Ritonavir [Norvir -] 100 MG) PO SCH (07:48)
[2017-01-26] MEDS: PATIENT'S OWN MEDICATION (NON-FORMULARY) (Emtricitabine/Tenofovir (Tdf) [Truvada 200 Mg-30 PO SCH (07:48)
[2017-01-26] MEDS: LORATADINE 10 MG TABLET PO SCH (10:25)
[2017-01-26] MEDS: BACITRACIN 0.9 GM PACKET TP SCH ×2 (10:25→21:50)
[2017-01-26] MEDS: PRENATAL VITAMINS W/ FOLIC ACID TABLET (FP) PO SCH (10:25)
[2017-01-26] MEDS: HYDROCORTISONE 2.5% TOPICAL CREAM 30 GM TUBE TP SCH ×2 (10:25→21:51)
[2017-01-26] MEDS: FLUCONAZOLE 100 MG TABLET (UD) PO SCH (10:25)
[2017-01-26] MEDS: diphenhydrAMINE HCL 50 MG CAPSULE PO PRN (21:51)
[2017-01-26] MEDS: THIAMINE HCL 100 MG TABLET (FP) PO SCH (21:52)
[2017-01-26] MEDS: traZODone HCL 100 MG TABLET (FP) PO SCH (21:52)
[2017-01-27] MEDS: DARUNAVIR ETHANOLATE 800 MG PO SCH (08:09)
[2017-01-27] MEDS: PATIENT'S OWN MEDICATION (NON-FORMULARY) (Emtricitabine/Tenofovir (Tdf) [Truvada 200 Mg-30 PO SCH (08:09)
[2017-01-27] MEDS: PATIENT'S OWN MEDICATION (NON-FORMULARY) (Ritonavir [Norvir -] 100 MG) PO SCH (08:09)
[2017-01-27] MEDS ORDERED: PT OWN MED DRAWER 7, Y5N ONE ×2 (08:24→19:29)
[2017-01-27] MEDS: HYDROCORTISONE 2.5% TOPICAL CREAM 30 GM TUBE TP SCH ×2 (10:27→21:56)
[2017-01-27] MEDS: LORATADINE 10 MG TABLET PO SCH (10:28)
[2017-01-27] MEDS: PRENATAL VITAMINS W/ FOLIC ACID TABLET (FP) PO SCH (10:28)
[2017-01-27] MEDS: BACITRACIN 0.9 GM PACKET TP SCH ×2 (10:28→21:56)
[2017-01-27] MEDS: FLUCONAZOLE 100 MG TABLET (UD) PO SCH (10:28)
[2017-01-27] MEDS: traZODone HCL 100 MG TABLET (FP) PO SCH (21:55)
[2017-01-27] MEDS: THIAMINE HCL 100 MG TABLET (FP) PO SCH (21:56)
[2017-01-27] MEDS: diphenhydrAMINE HCL 50 MG CAPSULE PO PRN (21:57)
[2017-01-28] MEDS: PATIENT'S OWN MEDICATION (NON-FORMULARY) (Emtricitabine/Tenofovir (Tdf) [Truvada 200 Mg-30 PO SCH (07:54)
[2017-01-28] MEDS: PATIENT'S OWN MEDICATION (NON-FORMULARY) (Ritonavir [Norvir -] 100 MG) PO SCH (07:54)
[2017-01-28] MEDS: DARUNAVIR ETHANOLATE 800 MG PO SCH (07:54)
[2017-01-28] MEDS: HYDROCORTISONE 2.5% TOPICAL CREAM 30 GM TUBE TP SCH ×2 (10:27→22:35)
[2017-01-28] MEDS: FLUCONAZOLE 100 MG TABLET (UD) PO SCH (10:28)
[2017-01-28] MEDS: LORATADINE 10 MG TABLET PO SCH (10:28)
[2017-01-28] MEDS: BACITRACIN 0.9 GM PACKET TP SCH ×2 (10:28→22:35)
[2017-01-28] MEDS: PRENATAL VITAMINS W/ FOLIC ACID TABLET (FP) PO SCH (10:28)
[2017-01-28] MEDS ORDERED: PT OWN MED DRAWER 7, Y5N ONE ×2 (10:44→17:56)
[2017-01-28] MEDS: traZODone HCL 100 MG TABLET (FP) PO SCH (22:04)
[2017-01-28] MEDS: THIAMINE HCL 100 MG TABLET (FP) PO SCH (22:04)
[2017-01-28] MEDS: diphenhydrAMINE HCL 50 MG CAPSULE PO PRN (22:05)
[2017-01-29] MEDS: PATIENT'S OWN MEDICATION (NON-FORMULARY) (Emtricitabine/Tenofovir (Tdf) [Truvada 200 Mg-30 PO SCH (07:48)
[2017-01-29] MEDS: PATIENT'S OWN MEDICATION (NON-FORMULARY) (Ritonavir [Norvir -] 100 MG) PO SCH (07:48)
[2017-01-29] MEDS: DARUNAVIR ETHANOLATE 800 MG PO SCH (07:48)
[2017-01-29] MEDS ORDERED: PT OWN MED DRAWER 7, Y5N ONE ×2 (07:49→14:06)
[2017-01-29] MEDS: FLUCONAZOLE 100 MG TABLET (UD) PO SCH (10:31)
[2017-01-29] MEDS: PRENATAL VITAMINS W/ FOLIC ACID TABLET (FP) PO SCH (10:31)
[2017-01-29] MEDS: BACITRACIN 0.9 GM PACKET TP SCH ×2 (10:31→21:40)
[2017-01-29] MEDS: LORATADINE 10 MG TABLET PO SCH (10:31)
[2017-01-29] MEDS: HYDROCORTISONE 2.5% TOPICAL CREAM 30 GM TUBE TP SCH ×2 (10:32→21:41)
--- NOTE | 2017-01-29 13:39 | PN ---
Psychiatric Progress Note Vital Signs: Vital Signs Period Temp Pulse Resp BP Sys/Desai Pulse Ox Last 24 Hr 97.8 F 72 18-18 137/89 Date of Session: 01/29/17 Chief Complaint:: Discharge visit HPI: Patient addressed PCP dependence comorbid with PTSD. ROS: Significant for HIV+. Current Medications: Active Medications Generic Name Dose Route Start Last Admin Trade Name Freq PRN Reason Stop Dose Admin Acetaminophen 650 mg 01/02/17 20:03 Tylenol - PO Q4H PRN FEVER OR PAIN Al Hydroxide/Mg Hydroxide 30 ml 01/02/17 20:03 01/08/17 10:19 Mylanta Oral Suspension - PO 30 ml Q6H PRN Administration DYSPEPSIA Bacitracin 0.9 gm 01/23/17 22:00 01/29/17 10:31 Bacitracin - TP 0.9 gm BID SALINA Administration Diphenhydramine HCl 50 mg 01/02/17 20:03 01/28/17 22:05 Benadryl - PO 50 mg HSMR1 PRN Administration FOR ITCHING Emtricitabine/Tenofovir 1 tab 01/30/17 06:00 Truvada PO DAILY@0600 [facility] Eucalyptus/Menthol/Phenol/Sorbitol 1 each 01/02/17 20:03 Cepastat Lozenge - MM Q4H PRN SORE THROAT Fluconazole 100 mg 01/05/17 09:13 01/29/17 10:31 Diflucan - PO 100 mg DAILY [facility] Administration Guaifenesin 10 ml 01/02/17 20:03 Robitussin Dm - PO Q6H PRN COUGH Hydrocortisone 1 applic 01/03/17 22:00 01/29/17 10:32 Anusol 2.5% Hc Cream - TP Not Given BID [facility] Hydroxyzine Pamoate 50 mg 01/03/17 00:35 01/05/17 23:23 Vistaril - PO 50 mg Q4H PRN Administration AGITATION Ibuprofen 400 mg 01/02/17 20:03 01/07/17 21:32 Motrin - PO 400 mg Q6H PRN Administration PAIN Loperamide HCl 4 mg 01/02/17 20:03 Imodium - PO Q6H PRN DIARRHEA Loratadine 10 mg 01/03/17 10:00 01/29/17 10:31 Claritin - PO 10 mg DAILY [facility] Administration Magnesium Hydroxide 30 ml 01/02/17 20:03 01/06/17 18:36 Milk Of Magnesia - PO 30 ml DAILY PRN Administration CONSTIPATION Non-Formulary Medication 800 mg 01/03/17 10:00 01/29/17 07:48 Darunavir Ethanolate [Prezista] PO 800 mg DAILY@0800 [facility] Administration Non-Formulary Medication 1 each 01/03/17 10:00 01/29/17 07:48 Emtricitabine/Tenofovir (Tdf) [Truvada 200 Mg-300 Mg Tablet] PO 1 each DAILY@0800 [facility] Administration Non-Formulary Medication 100 mg 01/03/17 10:00 01/29/17 07:48 Ritonavir [Norvir -] PO 100 mg DAILY@0800 [facility] Administration Multivit/Folic Acid/Iron 1 tab 01/03/17 10:00 01/29/17 10:31 Vitamins ([facility]) - PO 1 tab DAILY [facility] Administration Pseudoephedrine/Triprolidine 1 combo 01/02/17 20:03 Actifed - PO TID PRN NASAL CONGESTION Thiamine HCl 100 mg 01/02/17 22:00 01/28/17 22:04 Vitamin B1 - PO 100 mg HS [facility] Administration Trazodone HCl 100 mg 01/10/17 22:00 01/28/17 22:04 Desyrel - PO 100 mg HS [place]INA Administration Current Side Effect: No Lab tests ordered: No Lab tests reviewed: Yes Provider note:: The patient will complete this program tomorrow 01/30/17.She has met her treatment goals and will continue to address her issues on outpstient basis at [facility] and medical issues at [facility].Patient will continue Trazodone 100 mg po hs, script for 30 days provided. Therapy provided focusing on coping skills, support system utilization to maintain recovery. Patient is stable for discharge tomorrow. Total face to face time:: 30 Mental Status Exam - Mental Status Exam Alert and Oriented to: Time, Place, Person Cognitive Function: Grossly Intact Patient Appearance: Well Groomed Mood: Euthymic Affect: Mood Congruent Patient Behavior: Cooperative Speech Pattern: Clear Voice Loudness: Normal Thought Process: Goal Oriented Thought Disorder: Not Present Hallucinations: Denies Suicidal Ideation: Denies Homicidal Ideation: Denies Insight/Judgement: Fair Sleep: Fair Appetite: Good Muscle strength/Tone: Normal Gait/Station: Normal Psychiatric Treatment Plan - Problem List (1) HIV (human immunodeficiency virus infection) Current Visit: Yes Comment: PREZESTA NORVIR TRUVADA (2) PCP dependence Current Visit: Yes (3) Rhinitis, allergic Current Visit: Yes Qualifiers: Allergic rhinitis trigger: unspecified Allergic rhinitis seasonality: non-seasonal Qualified Code(s): J30.89 - Other allergic rhinitis (4) Positive PPD, treated Current Visit: Yes Comment: CHEST X RAY PENDING (5) PTSD (post-traumatic stress disorder) Current Visit: Yes
[2017-01-29] MEDS: THIAMINE HCL 100 MG TABLET (FP) PO SCH (21:40)
[2017-01-29] MEDS: diphenhydrAMINE HCL 50 MG CAPSULE PO PRN (21:40)
[2017-01-29] MEDS: traZODone HCL 100 MG TABLET (FP) PO SCH (21:40)
[2017-01-30] MEDS ORDERED: PT OWN MED DRAWER 7, Y5N ONE ×2 (05:57→08:02)
[2017-01-30] MEDS ORDERED: EMTRICITABINE 200MG/TENOFOVIR 300MG PO SCH (06:00)
[2017-01-30 06:52] VITALS: BP 133/93; PULSE 77; TEMP 98
[2017-01-30] MEDS: PATIENT'S OWN MEDICATION (NON-FORMULARY) (Ritonavir [Norvir -] 100 MG) PO SCH (07:59)
[2017-01-30] MEDS: DARUNAVIR ETHANOLATE 800 MG PO SCH (07:59)
[2017-01-30] MEDS: PATIENT'S OWN MEDICATION (NON-FORMULARY) (Emtricitabine/Tenofovir (Tdf) [Truvada 200 Mg-30 PO SCH (08:00)
[2017-01-30] MEDS: BACITRACIN 0.9 GM PACKET TP SCH (09:57)
[2017-01-30] MEDS: PRENATAL VITAMINS W/ FOLIC ACID TABLET (FP) PO SCH (09:57)
[2017-01-30] MEDS: FLUCONAZOLE 100 MG TABLET (UD) PO SCH (09:57)
[2017-01-30] MEDS: LORATADINE 10 MG TABLET PO SCH (09:57)
[2017-01-30] MEDS: HYDROCORTISONE 2.5% TOPICAL CREAM 30 GM TUBE TP SCH (09:58)
== END 2017-01-30 10:15 | disposition home or self-care (01) | DRG 772 ==
LOC: YASAS 15:12 → Y3E 19:55
PROVIDERS: ADMIT Psychiatry & Neurology Psychiatry; ATTEND Psychiatry & Neurology Psychiatry
PROC: HZ42ZZZ Group Counseling for Substance Abuse Treatment, Cognitive-Behavioral (ICD-10-PCS; principal; 2017-01-30)
DX: F11.20 Opioid dependence, uncomplicated (principal); F43.10 Post-traumatic stress disorder, unspecified; J30.89 Other allergic rhinitis; R76.11 Nonspecific reaction to tuberculin skin test without active tuberculosis; Z21 Asymptomatic human immunodeficiency virus [HIV] infection status
CPT/HCPCS: 36415; 71020-TC; 80053; 81003; 85027; 86593; 93005; 93010